=== PATIENT | female | born 1960 | race African-American/Black ===

== ENCOUNTER 2018-09-11 10:24 | Emergency (ER) | payer OTHER ==
[~2018-09-11] VITALS: Ht 167.6 cm; Wt 120.0 kg
[2018-09-11] MEDS ORDERED: LISI-604 PO (10:36)
[2018-09-11] MEDS ORDERED: OMEP20TA2 PO (10:36)
[2018-09-11] MEDS ORDERED: CLINORIL (10:36)
[2018-09-11 11:47] LABS: CLARITY URINE CLOUDY (CLEAR); COLOR URINE YELLOW (YELLOW); KETONES URINE NEGATIVE (NEGATIVE); LEUKOCYTE ESTERASE URINE 3+ (NEGATIVE); NITRITE URINE NEGATIVE (NEGATIVE); OCCULT BLOOD URINE 1+ (NEGATIVE); PROTEIN URINE TRACE (NEGATIVE); SPECIFIC GRAVITY URINE 1.022 (1.005-1.030)
[2018-09-11] MEDS ORDERED: CEFTRIAXONE 2 G PREMIX 50 ML IV ONE (13:15)
[2018-09-11 13:44] LABS: BASOPHILS % 1.3 % (0.0-2.0); EOSINOPHILS % 1.7 % (0.0-5.0); HEMATOCRIT. 39.4 % (36.0-48.0); HEMOGLOBIN. 13.3 g/dL (12.0-16.0); LYMPHOCYTES % 27.1 % (20.0-50.0); MEAN CORPUSCULAR HEMOGLOBIN 30.9 pg (28.0-32.0); MEAN CORPUSCULAR VOLUME 91.9 fL (81.0-99.0); MEAN PLATELET VOLUME 7.8 fl (7.4-10.4); MONOCYTES % 11.3 % (2.0-8.0); NEUTROPHILS % 58.6 % (40.0-76.0); PLATELET 372 x1000/uL (130-400); RED BLOOD CELL COUNT 4.28 mill/uL (4.2-5.4); RED CELL DISTRIBUTION WIDTH 13.9 % (11.6-14.6)
[2018-09-11 13:47] LABS: CHLORIDE 108 mEq/L (98-107)
[2018-09-11 13:50] LABS: PROTHROMBIN TIME 10.3 sec (9.1-11.1)
[2018-09-11 17:20] VITALS: BP 149/69
== END 2018-09-11 17:21 | disposition home or self-care (01) ==
LOC: ER 10:24
DX: N12 Tubulo-interstitial nephritis, not specified as acute or chronic (principal); Z90.710 Acquired absence of both cervix and uterus
CPT/HCPCS: 36415; 74176; 80053; 81003; 83690; 85025; 85610; 87077; 87086; 87186; 96365; 99284; J0696

== ENCOUNTER 2020-04-12 17:06 | Emergency (ER) | payer OTHER ==
[~2020-04-12] VITALS: Ht 165.1 cm; Wt 113.0 kg
[~2020-04-12 17:06] MED LIST: CLINORIL; LISI-604 PO; OMEP20TA2 PO
[2020-04-12] MEDS ORDERED: IBUPROFEN 600MG TABLET PO STA (20:23)
[2020-04-12] MEDS ORDERED: HYDROCODONE/ACETAMINOPHEN 5/325MG TABLET PO STA (20:23)
[2020-04-12 20:34] VITALS: BP 190/94
[2020-04-12 20:43] LABS: CLARITY URINE CLEAR (CLEAR); COLOR URINE YELLOW (YELLOW); KETONES URINE NEGATIVE (NEGATIVE); LEUKOCYTE ESTERASE URINE NEGATIVE (NEGATIVE); NITRITE URINE NEGATIVE (NEGATIVE); OCCULT BLOOD URINE NEGATIVE (NEGATIVE); PROTEIN URINE NEGATIVE (NEGATIVE); SPECIFIC GRAVITY URINE 1.021 (1.005-1.030)
[2020-04-12 20:50] LABS: BASOPHILS % 1.4 % (0.0-2.0); EOSINOPHILS % 2.5 % (0.0-5.0); HEMATOCRIT. 38.3 % (36.0-48.0); HEMOGLOBIN. 13.1 g/dL (12.0-16.0); LYMPHOCYTES % 37.5 % (20.0-50.0); MEAN CORPUSCULAR HEMOGLOBIN 31.3 pg (28.0-32.0); MEAN CORPUSCULAR VOLUME 91.4 fL (81.0-99.0); MEAN PLATELET VOLUME 7.5 fl (7.4-10.4); MONOCYTES % 12.4 % (2.0-8.0); NEUTROPHILS % 46.2 % (40.0-76.0); PLATELET 341 x1000/uL (130-400); RED BLOOD CELL COUNT 4.19 mill/uL (4.2-5.4); RED CELL DISTRIBUTION WIDTH 13.5 % (11.6-14.6)
[2020-04-12 20:55] LABS: CHLORIDE 108 mEq/L (98-107)
== END 2020-04-12 22:01 | disposition home or self-care (01) ==
LOC: ER 17:06
DX: M54.5 Low back pain (principal); I10 Essential (primary) hypertension; M32.9 Systemic lupus erythematosus, unspecified; Z87.448 Personal history of other diseases of urinary system
CPT/HCPCS: 36415; 80053; 81003; 85025; 99283

== ENCOUNTER 2021-04-12 08:59 | Emergency (ER) | payer BC, OTHER ==
[~2021-04-12] VITALS: Ht 152.4 cm; Wt 99.0 kg
[~2021-04-12 08:59] MED LIST changes: -LISI-604 PO; +LISI20TA31 PO
[2021-04-12] MEDS ORDERED: MORPHINE SULFATE 4 MG/ML CPJ (NOT FOR IM USE) IV STA (09:43)
[2021-04-12] MEDS ORDERED: SODIUM CHLORIDE 0.9% 1,000 ML IV ONE (09:45)
[2021-04-12] MEDS ORDERED: ACETAMINOPHEN 325MG TABLET PO ONE (10:00)
[2021-04-12 10:19] LABS: BASOPHILS % 2.5 % (0.0-2.0); HEMATOCRIT. 39.5 % (36.0-48.0); HEMOGLOBIN. 13.7 g/dL (12.0-16.0); MEAN CORPUSCULAR HEMOGLOBIN 31.3 pg (28.0-32.0); MEAN CORPUSCULAR VOLUME 90.1 fL (81.0-99.0); MEAN PLATELET VOLUME 8.5 fl (7.4-10.4); MONOCYTES % 14.2 % (2.0-8.0); NEUTROPHILS % 44.3 % (40.0-76.0); PLATELET 337 x1000/uL (130-400); RED BLOOD CELL COUNT 4.38 mill/uL (4.2-5.4); RED CELL DISTRIBUTION WIDTH 13.4 % (11.6-14.6)
[2021-04-12 10:26] LABS: CHLORIDE 110 mEq/L (98-107)
[2021-04-12 10:30] LABS: ETHANOL BLOOD < 10 mg/dL
[2021-04-12 11:45] LABS: *AMPHETAMINES SCREEN URINE NEGATIVE (NEGATIVE); *BARBITURATES SCREEN URINE NEGATIVE (NEGATIVE)
[2021-04-12] MEDS ORDERED: HYDROCODONE/ACETAMINOPHEN 5/325MG TABLET PO NR (11:45)
[2021-04-12 11:46] LABS: *BENZODIAZEPINES SCREEN URINE NEGATIVE (NEGATIVE); *COCAINE SCREEN URINE NEGATIVE (NEGATIVE); CANNABINOID URINE SCREEN NEGATIVE (NEGATIVE); OPIATES URINE SCREEN NEGATIVE (NEGATIVE); PHENCYCLIDINE URINE SCREEN NEGATIVE (NEGATIVE)
[2021-04-12 11:47] LABS: METHADONE URINE SCREEN NEGATIVE (NEGATIVE)
[2021-04-12] MEDS ORDERED: HYDR-4346 MT (12:05)
[2021-04-12] MEDS ORDERED: IBUP-2029 MT (12:05)
[2021-04-12] MEDS ORDERED: METO-293 MT (12:05)
[2021-04-12 12:25] VITALS: BP 148/82
== END 2021-04-12 12:28 | disposition home or self-care (01) ==
LOC: ER 08:59
DX: I10 Essential (primary) hypertension (principal); M71.22 Synovial cyst of popliteal space [Baker], left knee; M17.0 Bilateral primary osteoarthritis of knee; M32.9 Systemic lupus erythematosus, unspecified
CPT/HCPCS: 36415; 71045; 73562; 80053; 80305; 80320; 83690; 83880; 84484; 85025; 85379; 93005; 93970; 99285; J7030; L1830; Z7610; G0480

== ENCOUNTER 2022-01-12 12:40 | Emergency (ER) | payer OTHER ==
[~2022-01-12] VITALS: Ht 165.1 cm; Wt 108.0 kg
[~2022-01-12 12:40] MED LIST changes: +HYDR-4346 MT; +IBUP-2029 MT; +METO-293 MT
[2022-01-12 15:49] VITALS: BP 136/78
== END 2022-01-12 15:51 | disposition home or self-care (01) ==
LOC: ER 12:40
DX: M17.11 Unilateral primary osteoarthritis, right knee (principal); I10 Essential (primary) hypertension
CPT/HCPCS: 73562; 93971; 99284

== ENCOUNTER 2023-08-13 07:41 | Emergency (ER) | payer OTHER ==
[~2023-08-13] VITALS: Ht 165.1 cm; Wt 117.0 kg
[~2023-08-13 07:41] MED LIST changes: -OMEP20TA2 PO; +OMEP20TA23 PO
[2023-08-13 07:43] VITALS: O2SAT 100
[2023-08-13 08:30] LABS: BASOPHILS % 1.3 % (0.0-2.0); EOSINOPHILS % 1.3 % (0.0-5.0); HEMATOCRIT. 40.1 % (36.0-48.0); HEMOGLOBIN. 13.1 g/dL (12.0-16.0); LYMPHOCYTES % 22.3 % (20.0-50.0); MEAN CORPUSCULAR HEMOGLOBIN 29.6 pg (28.0-32.0); MEAN CORPUSCULAR HGB CONC 32.6 g/dL (31.0-37.0); MEAN CORPUSCULAR VOLUME 90.7 fL (81.0-99.0); MEAN PLATELET VOLUME 7.9 fl (7.4-10.4); MONOCYTES % 8.8 % (2.0-8.0); NEUTROPHILS % 66.3 % (40.0-76.0); PLATELET 395 x1000/uL (130-400); RED BLOOD CELL COUNT 4.42 mill/uL (4.2-5.4); RED CELL DISTRIBUTION WIDTH 13.9 % (11.6-14.6); WHITE BLOOD COUNT 5.2 x1000/uL (4.5-11.0)
[2023-08-13] MEDS: ACETAMINOPHEN 325MG TABLET PO ONE (08:46)
[2023-08-13] MEDS: MECLIZINE 25MG TABLET PO ONE (08:46)
[2023-08-13] MEDS: ONDANSETRON 4MG ODT PO PRN (08:46)
[2023-08-13 08:47] LABS: CLARITY URINE CLEAR (CLEAR); COLOR URINE YELLOW (YELLOW); GLUCOSE URINE NEGATIVE (NEGATIVE); KETONES URINE NEGATIVE (NEGATIVE); LEUKOCYTE ESTERASE URINE NEGATIVE (NEGATIVE); NITRITE URINE NEGATIVE (NEGATIVE); OCCULT BLOOD URINE NEGATIVE (NEGATIVE); PROTEIN URINE NEGATIVE (NEGATIVE); SPECIFIC GRAVITY URINE 1.026 (1.005-1.030)
[2023-08-13 09:31] LABS: CHLORIDE 108 mEq/L (98-107); INDEX HEMOLYSI 1 (1-3); INDEX ICTERIC 1 (1-4); INDEX LIPEMIC 1 (1-3); POTASSIUM 3.6 mEq/L (3.5-5.1); SODIUM 139 mEq/L (136-145)
[2023-08-13 09:44] LABS: ALANINE AMINOTRANSFERASE 32 IU/L (13-61); ALBUMIN 3.8 g/dL (3.4-5.0); ASPARTATE AMINOTRANSFERASE 21 IU/L (15-37); BILIRUBIN TOTAL 0.5 mg/dL (0.1-1.0); CALCIUM 9.3 mg/dL (8.5-10.1); CARBON DIOXIDE 24 mEq/L (21-32); CREATININE 0.7 mg/dL (0.6-1.3); GLUCOSE 136 mg/dL (70-105); PROTEIN TOTAL 7.8 g/dL (6.0-8.3); TROPONIN I HIGH SENSITIVITY 5 ng/L (<54); UREA NITROGEN BLOOD 17 mg/dL (7-21)
[2023-08-13] MEDS ORDERED: TOPUD MT (10:26)
[2023-08-13] MEDS ORDERED: MECL-299 MT (10:26)
[2023-08-13] MEDS ORDERED: FLUT9.9S BOTHNSTRLS (10:26)
[2023-08-13 10:39] VITALS: BP 138/88; PULSE 88; RESP 18; TEMP 98.7
== END 2023-08-13 10:42 | disposition home or self-care (01) ==
LOC: ER 07:53
DX: H81.10 Benign paroxysmal vertigo, unspecified ear (principal); J30.9 Allergic rhinitis, unspecified; M19.90 Unspecified osteoarthritis, unspecified site; I10 Essential (primary) hypertension; Z90.710 Acquired absence of both cervix and uterus; Z96.653 Presence of artificial knee joint, bilateral
CPT/HCPCS: 99285; 71045; 80053; 81003; 85025; 84484; 36415; 93005; J8597; Q0162

== ENCOUNTER 2025-04-10 14:46 | Emergency (ER) | payer OTHER ==
[~2025-04-10] VITALS: Ht 167.6 cm; Wt 69.0 kg
[~2025-04-10 14:46] MED LIST changes: +FLUT9.9S BOTHNSTRLS; +MECL-299 MT; +TOPUD MT
[2025-04-10 14:56] VITALS: TEMP 37.1; O2SAT 100
[2025-04-10 17:36] VITALS: BP 110/60; PULSE 66; RESP 12; O2SAT 97
== END 2025-04-10 17:37 | disposition home or self-care (01) ==
LOC: ER 14:46
DX: R04.0 Epistaxis (principal); I10 Essential (primary) hypertension; M19.90 Unspecified osteoarthritis, unspecified site; Z90.710 Acquired absence of both cervix and uterus; Z96.659 Presence of unspecified artificial knee joint
CPT/HCPCS: 99281; 99282

== ENCOUNTER 2025-09-20 14:53 | Emergency (ER) | payer OTHER ==
[~2025-09-20] VITALS: Ht 175.3 cm; Wt 98.0 kg
[~2025-09-20 14:53] MED LIST changes: +IBUP-1455 MT; -IBUP-2029 MT
[2025-09-20 15:34] VITALS: O2SAT 99
[2025-09-20 17:13] LABS: PLATELET 326 x1000/uL (130-400); RED BLOOD CELL COUNT 3.97 mill/uL (4.2-5.4); RED CELL DISTRIBUTION WIDTH 13.2 % (11.6-14.6)
[2025-09-20] MEDS ORDERED: [UNRECOGNIZED DRUG - CODE] NS (17:20)
[2025-09-20 17:27] LABS: CREATININE 0.7 mg/dL (0.6-1.0); PROTEIN TOTAL 7.1 g/dL (6.0-8.3); UREA NITROGEN BLOOD 14 mg/dL (9-23)
[2025-09-20 17:29] LABS: ASPARTATE AMINOTRANSFERASE 23 IU/L (<34); BILIRUBIN TOTAL 0.5 mg/dL (0.1-1.0)
[2025-09-20] MEDS ORDERED: OXYM30SP26 BOTHNSTRLS (17:34)
[2025-09-20 17:58] LABS: INR 1.0
[2025-09-20 18:12] VITALS: BP 140/73; PULSE 77; RESP 18; TEMP 36.7; O2SAT 95
== END 2025-09-20 18:13 | disposition home or self-care (01) ==
LOC: ER 14:53
DX: R04.0 Epistaxis (principal); I10 Essential (primary) hypertension; M19.90 Unspecified osteoarthritis, unspecified site; Z90.710 Acquired absence of both cervix and uterus; Z96.659 Presence of unspecified artificial knee joint
CPT/HCPCS: 36415; 80053; 85027; 99283